=== PATIENT | female | born 1995 | race African-American/Black ===

== ENCOUNTER 2020-03-23 20:51 | Observation (INO) ==
--- OUTSIDE RECORDS SUMMARY | 2020-03-23 20:53 | External Medical Summary | Continuity of Care Document ---
:1995 Author Name Yusuf Matos, Provider Address Unavailable Unavailable , Care Team Providers Name Role Phone Janett [email or web address] GAVIN MOREIRA Unavailable Unavailable Problems Obesity (278.00) (E66.9) Allergies and Adverse Reactions Allergy history not documented Medications Medications not documented Procedures Procedures not documented Immunizations Immunizations not documented Plan of Treatment Planned Observations Planned Goals not documented Results No Known Results Results not documented Encounters Appointment; Janett Ashley R.D. 06-Jan-2011 8:30 Encounter Diagnosis: Problem not documented
--- OUTSIDE RECORDS SUMMARY | 2020-03-23 20:53 | External Medical Summary | Continuity of Care Document ---
:1995 Author Name Yusuf Matos, Provider Address Unavailable Unavailable , Care Team Providers Name Role Phone Janett Ashley [email or web address] GAVIN MOREIRA Unavailable Unavailable Problems Obesity (278.00) (E66.9) Allergies and Adverse Reactions Allergy history not documented Medications Medications not documented Procedures Procedures not documented Immunizations Immunizations not documented Plan of Treatment Planned Observations Planned Goals not documented Results No Known Results Results not documented Encounters Appointment; Janett Ashley R.D. 06-Jan-2011 8:30 Encounter Diagnosis: Problem not documented
--- NOTE | 2020-03-23 21:10 | Emergency Department Note ---
Impression & Plan Left leg paresthesias, Right leg paresthesias, Ambulatory dysfunction ED Provider Note NAME: UMM MANZO AGE: 24 SEX: F : 1995 ARRIVES VIA: Walk-In INFORMANT: Patient, ED PROVIDER(S): Jamie Sun MD Chief Complaint: Leg numbness HPI: Patient does report bilateral leg numbness that has been ongoing since to Wednesday. The patient states initially did seem to be in her bilateral feet but then subsequently got worse and progressed to her knees. Patient denies any headache back pain bowel or bladder incontinence or retention. The patient denies any recent trauma or falls. The patient does not take any blood thinner medications. Patient states that she has felt as though the legs feel swollen but they do not appear to be so. The patient has had some slight changes in difficulty with walking due to the change in feeling in her bilateral lower extremities. The patient was seen in the outpatient setting at [facility] and told that she may have some sort of polyneuropathy. The patient denies any recent changes in diet. The patient is likely from the area but does live in [place]. Patient denies fevers or chills, chest pains shortness of breath nausea or vomiting. Patient states she has not had the symptoms before the gotten progressively worse. Patient denies any recent vaccinations or infectious symptoms ROS: See HPI for pertinent positives and negatives. A total of 10 systems were reviewed and otherwise negative. Past medical history: See below Surgical history: See below Social history: See below Physical Exam: GENERAL: Wearing a mask. NAD, non-toxic. EYE EXAM: Normal conjunctiva. PERRL, no anisocoria and EOM's grossly intact w/o pain. NECK: Supple, no nuchal rigidity, no adenopathy, non-tender. No signs of meningismus. LUNGS: Clear to auscultation. Normal chest wall mechanics. HEART: NSR, no MRG. ABDOMEN: Abdomen soft, non-tender, normo-active bowel sounds, no masses, no rebound or guarding. BACK: No CVA TTP. SKIN: No rashes and no bruising. UPPER EXTREMITIES: Upper extremities are grossly normal. LOWER EXTREMITIES: Grossly normal, no edema. NEURO EXAM: A&O x3, cranial nerves II-XII grossly intact, normal speech, moves all 4 extremities on command. Patellar reflexes normal, able to differentiate left versus right lower extremity in the medial and lateral thigh calf and feet but states she feels the pressure but it does feel decreased and still has feelings of [id number], negative Romberg, slight change in posture with ambulation. Differential diagnoses: Infection, dehydration, metabolic abnormality, hypo/hyperglycemia, electrolyte disturbance, anemia, hypoxia, cardiac sources, intracerebral event, toxicologic, neurologic, as well as other pathologies. Course: Patient was seen and evaluated the bedside. Full history physical exam was performed. EKG: Sinus rhythm with PACs, rate of 67, normal intervals, normal axis, benign early repolarization noted. Imaging Studies: Radiology results as stated below per my review in the radiologist's interpretation: CT SCAN OF THE LUMBAR SPINE WITHOUT IV CONTRAST CLINICAL HISTORY: Lower extremity paresthesias COMPARISON STUDY: No priors. TECHNIQUE: CT scan of the lumbar spine is performed from the lower thoracic spine to the sacrum. Images are reviewed in the axial, sagittal, and coronal planes. IV contrast was not administered for this examination. A dose lowering technique was utilized adhering to the principles of ALARA. CT DOSE: 707.16 mGy.cm FINDINGS: The skeletal structures are well mineralized. There is no evidence of fracture or malalignment involving the lumbar spine. Vertebral body height and alignment are maintained. The transverse and spinous processes are intact. There is no spondylolysis. No lytic or blastic lesion is seen. The disc spaces are preserved. There is no CT evidence of disc herniation or central canal stenosis. The visualized sacrum and bony pelvis appear intact. The sacroiliac joints are normal as imaged. The paraspinous soft tissues are normal in appearance. IMPRESSION: No bony abnormality is seen involving the lumbar spine. ACT 112: Negative or not required by law. Electronically signed by: Hang Yates M.D. 03/23/2020 10:41 PM Dictated: 03/23/202237Transcribed: 03/23/202237 Cardiac monitoring: An order was placed for continuous cardiac monitoring. The monitor shows a rate of 81 with sinus rhythm. MDM: Patient did have blood work completed along with a CT of the lumbar spine. Blood work is unremarkable CT does not show any bony abnormality. CT of the head was not ordered initially the patient denied any headache the patient was having bilateral lower extremity changes. I did consider the possibility of GBS but the patient denies any recent infectious symptoms vaccination although it is slightly ascending in nature from the patient's feet now to the patient's needs. Patient has no respiratory symptoms. The patient's EKG is unremarkable. I did ambulate the patient after CAT scan and she states that she was not walking as she normally did several days ago. Given this I did order an MRI of the lumbar spine with and without contrast. Patient was signed out to Dr. Barbosa pending the results of an MRI reassessment disposition. I did discuss with Dr. Barbosa given the strange gait of the patient would recommend admission regardless of the MRI unless it required transfer. The patient denied any bowel or bladder incontinence and no retention. The patient had no saddle anesthesia. Past Med/Surg History Medical History No pertinent past medical history Surgical History No pertinent past surgical history Social History Smoking Status: Never smoker Hx Alcohol Use: No Hx Substance Use: Yes Last Used Substance: Hours (ago) Last Used Substance Other:: 2/3x day Preferred Language: [place] Islander Communication Ability: Effective Resin Remover Required: No Beliefs That Will Affect Care: None Current Living Situation: Alone Feels Safe at Home: Yes Safety Concerns: Feels Safe At This Time Assistive Devices: None Allergies Allergies Allergy/AdvReac Type Severity Reaction Status Date / Time amoxicillin [From Augmentin] Allergy Unknown Rash Verified 03/24/20 05:53 clavulanic acid Allergy Unknown Rash Verified 03/24/20 05:53 [From Augmentin] Home Meds Home Medications Medication Instructions Recorded Confirmed alprazolam 0.5 mg PO UD PRN 03/23/20 03/23/20 mirtazapine 7.5 mg PO DAILY 03/23/20 03/23/20 venlafaxine 37.5 mg PO DAILY 03/23/20 03/23/20 Results & Data (ED) Vital Signs Vital Signs - 24 hr 03/23/20 20:54 03/23/20 21:58 03/23/20 22:04 Temperature 36.7 C Temperature Source Oral Pulse Rate 82 73 61 Respiratory Rate 19 20 20 Respiratory Effort / Characteristics Non-Labored Respiratory Depth Normal Blood Pressure 139/74 121/78 Blood Pressure Mean 95 92 Pulse Oximetry 98 100 100 Oxygen Delivery Method Room Air Room Air Room Air Sepsis Recent Fever Within 48 Hours No Sepsis New/Unexplained Change in Mental Status No Sepsis Action Taken by Nursing No Action Required 03/23/20 23:01 03/23/20 23:30 03/24/20 00:00 Temperature Temperature Source Pulse Rate 75 68 71 Respiratory Rate 17 19 19 Respiratory Effort / Characteristics Respiratory Depth Blood Pressure 117/70 122/77 125/82 Blood Pressure Mean 85 92 96 Pulse Oximetry 98 99 99 Oxygen Delivery Method Sepsis Recent Fever Within 48 Hours Sepsis New/Unexplained Change in Mental Status Sepsis Action Taken by Nursing 03/24/20 01:31 03/24/20 02:00 03/24/20 02:43 Temperature Temperature Source Pulse Rate 85 74 73 Respiratory Rate 17 13 20 Respiratory Effort / Characteristics Respiratory Depth Blood Pressure 134/80 154/88 H 142/72 H Blood Pressure Mean 98 110 95 Pulse Oximetry 99 98 99 Oxygen Delivery Method Sepsis Recent Fever Within 48 Hours Sepsis New/Unexplained Change in Mental Status Sepsis Action Taken by Nursing 03/24/20 03:00 03/24/20 03:30 03/24/20 04:00 Temperature Temperature Source Pulse Rate 74 73 85 Respiratory Rate 17 18 18 Respiratory Effort / Characteristics Respiratory Depth Blood Pressure 140/87 126/74 124/81 Blood Pressure Mean 104 91 95 Pulse Oximetry 97 97 99 Oxygen Delivery Method Sepsis Recent Fever Within 48 Hours Sepsis New/Unexplained Change in Mental Status Sepsis Action Taken by Nursing 03/24/20 04:30 Temperature Temperature Source Pulse Rate 79 Respiratory Rate 19 Respiratory Effort / Characteristics Respiratory Depth Blood Pressure 114/78 Blood Pressure Mean 90 Pulse Oximetry 97 Oxygen Delivery Method Sepsis Recent Fever Within 48 Hours Sepsis New/Unexplained Change in Mental Status Sepsis Action Taken by Usp Medications Current Medication List: was personally reviewed by me Laboratory Data Attestation: I reviewed the patient's lab results. Result diagrams: 03/24/20 06:02 03/24/20 06:02 Lab Results 03/23/20 03/23/20 03/24/20 Range/Units 21:41 21:41 02:05 WBC 8.14 (4.8-10.8) K/uL RBC 4.00 L (4.2-5.4) M/uL Hgb 12.6 (12.0-16.0) g/dL Hct 37.6 (37-47) % MCV 94.0 (80-100) fL MCH 31.5 (25-34) pg MCHC 33.5 (32-36) g/dL RDW Std Deviation 43.7 (36.4-46.3) fL RDW Coeff of Keily 12.6 (11.5-14.5) % Plt Count 168 (130-400) K/uL MPV 10.3 (7.4-10.4) fL Immature Gran % (Auto) 0.1 % Neut % (Auto) 59.1 % Lymph % (Auto) 33.4 % Norton % (Auto) 6.6 % Eos % (Auto) 0.7 % Baso % (Auto) 0.1 % Neut # (Auto) 4.80 (1.4-6.5) K/uL Lymph # (Auto) 2.72 (1.2-3.4) K/uL Norton # (Auto) 0.54 (0.11-0.59) K/uL Eos # (Auto) 0.06 (0-0.5) K/uL Baso # (Auto) 0.01 (0-0.2) K/uL Immature Gran # (Auto) 0.01 (0.00-0.02) K/uL Sodium 140 (136-145) mmol/L Potassium 3.9 (3.5-5.1) mmol/L Chloride 106 (98-107) mmol/L Carbon Dioxide 29 (21-32) mmol/L Anion Gap 5.0 (3-11) BUN 8 (7-18) mg/dl Creatinine 0.85 (0.6-1.2) mg/dl Est Cr Clr Drug Dosing 118.2 ml/min Est GFR ( Amer) 109.6 Est GFR (Non-Af Amer) 94.6 BUN/Creatinine Ratio 9.3 L (10-20) Glucose 100 H (70-99) mg/dl Calcium 8.7 (8.5-10.1) mg/dl Phosphorus 2.9 (2.5-4.9) mg/dl Magnesium 2.1 (1.8-2.4) mg/dl Total Bilirubin 0.4 (0.2-1) mg/dl AST 8 L (15-37) U/L ALT 14 (12-78) U/L Alkaline Phosphatase 53 (45-117) U/L C-Reactive Protein < 0.29 (0-0.29) mg/dl Total Protein 7.1 (6.4-8.2) gm/dl Albumin 3.7 (3.4-5.0) gm/dl Globulin 3.4 (2.5-4.0) gm/dl Albumin/Globulin Ratio 1.1 (0.9-2) Vitamin B12 (193-986) pg/ml TSH 2.480 (0.300-4.500) uIu/ml HCG, Qual (Negative) Urine Color Urine Appearance (Clear) Urine pH (4.5-7.5) Ur Specific [place] (1.000-1.030) Urine Protein (Negative) Urine Glucose (UA) (Negative) Urine Ketones (Negative) Urine Blood (Negative) Urine Nitrite (Negative) Urine Bilirubin (Negative) Urine Urobilinogen (Negative) Ur Leukocyte Esterase (Negative) CSF Appearance CSF Color Xanthrochromic CSF WBC (0-5) /uL CSF RBC (0-) /uL CSF Cell Count Tube # CSF Chemistry Tube # CSF Glucose (40-70) mg/dl CSF Total Protein (15-45) mg/dl CSF C.neoform/gat PCR (NotDetected) CSF CMV DNA (PCR) (NotDetected) CSF Enterovirus (PCR) (NotDetected) CSF E. coli K1 (PCR) (NotDetected) CSF H. influenzae (PCR) (NotDetected) CSF HSV I (PCR) (NotDetected) CSF HSV II (PCR) (NotDetected) CSF HHV 6 (PCR) (NotDetected) CSF L.monocytogenes PCR (NotDetected) CSF N. meningitidis PCR (NotDetected) CSF Parechovirus (PCR) (NotDetected) CSF S. agalactiae (PCR) (NotDetected) CSF S. pneumoniae (PCR) (NotDetected) CSF VZV DNA (PCR) (NotDetected) COVID-19 [facility] SARS-CoV-2, RNA, NAAT (NEGATIVE) 03/24/20 03/24/20 03/24/20 Range/Units 02:05 02:37 02:37 WBC (4.8-10.8) K/uL RBC (4.2-5.4) M/uL Hgb (12.0-16.0) g/dL Hct (37-47) % MCV (80-100) fL MCH (25-34) pg MCHC (32-36) g/dL RDW Std Deviation (36.4-46.3) fL RDW Coeff of Keily (11.5-14.5) % Plt Count (130-400) K/uL MPV (7.4-10.4) fL Immature Gran % (Auto) % Neut % (Auto) % Lymph % (Auto) % Norton % (Auto) % Eos % (Auto) % Baso % (Auto) % Neut # (Auto) (1.4-6.5) K/uL Lymph # (Auto) (1.2-3.4) K/uL Norton # (Auto) (0.11-0.59) K/uL Eos # (Auto) (0-0.5) K/uL Baso # (Auto) (0-0.2) K/uL Immature Gran # (Auto) (0.00-0.02) K/uL Sodium (136-145) mmol/L Potassium (3.5-5.1) mmol/L Chloride (98-107) mmol/L Carbon Dioxide (21-32) mmol/L Anion Gap (3-11) BUN (7-18) mg/dl Creatinine (0.6-1.2) mg/dl Est Cr Clr Drug Dosing ml/min Est GFR ( Amer) Est GFR (Non-Af Amer) BUN/Creatinine Ratio (10-20) Glucose (70-99) mg/dl Calcium (8.5-10.1) mg/dl Phosphorus (2.5-4.9) mg/dl Magnesium (1.8-2.4) mg/dl Total Bilirubin (0.2-1) mg/dl AST (15-37) U/L ALT (12-78) U/L Alkaline Phosphatase (45-117) U/L C-Reactive Protein (0-0.29) mg/dl Total Protein (6.4-8.2) gm/dl Albumin (3.4-5.0) gm/dl Globulin (2.5-4.0) gm/dl Albumin/Globulin Ratio (0.9-2) Vitamin B12 757 (193-986) pg/ml TSH (0.300-4.500) uIu/ml HCG, Qual Negative (Negative) Urine Color Urine Appearance (Clear) Urine pH (4.5-7.5) Ur Specific [place] (1.000-1.030) Urine Protein (Negative) Urine Glucose (UA) (Negative) Urine Ketones (Negative) Urine Blood (Negative) Urine Nitrite (Negative) Urine Bilirubin (Negative) Urine Urobilinogen (Negative) Ur Leukocyte Esterase (Negative) CSF Appearance CSF Color Xanthrochromic CSF WBC (0-5) /uL CSF RBC (0-) /uL CSF Cell Count Tube # CSF Chemistry Tube # CSF Glucose (40-70) mg/dl CSF Total Protein (15-45) mg/dl CSF C.neoform/gat PCR (NotDetected) CSF CMV DNA (PCR) (NotDetected) CSF Enterovirus (PCR) (NotDetected) CSF E. coli K1 (PCR) (NotDetected) CSF H. influenzae (PCR) (NotDetected) CSF HSV I (PCR) (NotDetected) CSF HSV II (PCR) (NotDetected) CSF HHV 6 (PCR) (NotDetected) CSF L.monocytogenes PCR (NotDetected) CSF N. meningitidis PCR (NotDetected) CSF Parechovirus (PCR) (NotDetected) CSF S. agalactiae (PCR) (NotDetected) CSF S. pneumoniae (PCR) (NotDetected) CSF VZV DNA (PCR) (NotDetected) COVID-19 Eval Order SARS-CoV-2, RNA, NAAT NEGATIVE (NEGATIVE) 03/24/20 03/24/20 03/24/20 Range/Units 02:39 03:26 03:26 WBC (4.8-10.8) K/uL RBC (4.2-5.4) M/uL Hgb (12.0-16.0) g/dL Hct (37-47) % MCV (80-100) fL MCH (25-34) pg MCHC (32-36) g/dL RDW Std Deviation (36.4-46.3) fL RDW Coeff of Keily (11.5-14.5) % Plt Count (130-400) K/uL MPV (7.4-10.4) fL Immature Gran % (Auto) % Neut % (Auto) % Lymph % (Auto) % Norton % (Auto) % Eos % (Auto) % Baso % (Auto) % Neut # (Auto) (1.4-6.5) K/uL Lymph # (Auto) (1.2-3.4) K/uL Norton # (Auto) (0.11-0.59) K/uL Eos # (Auto) (0-0.5) K/uL Baso # (Auto) (0-0.2) K/uL Immature Gran # (Auto) (0.00-0.02) K/uL Sodium (136-145) mmol/L Potassium (3.5-5.1) mmol/L Chloride (98-107) mmol/L Carbon Dioxide (21-32) mmol/L Anion Gap (3-11) BUN (7-18) mg/dl Creatinine (0.6-1.2) mg/dl Est Cr Clr Drug Dosing ml/min Est GFR ( Amer) Est GFR (Non-Af Amer) BUN/Creatinine Ratio (10-20) Glucose (70-99) mg/dl Calcium (8.5-10.1) mg/dl Phosphorus (2.5-4.9) mg/dl Magnesium (1.8-2.4) mg/dl Total Bilirubin (0.2-1) mg/dl AST (15-37) U/L ALT (12-78) U/L Alkaline Phosphatase (45-117) U/L C-Reactive Protein (0-0.29) mg/dl Total Protein (6.4-8.2) gm/dl Albumin (3.4-5.0) gm/dl Globulin (2.5-4.0) gm/dl Albumin/Globulin Ratio (0.9-2) Vitamin B12 (193-986) pg/ml TSH (0.300-4.500) uIu/ml HCG, Qual (Negative) Urine Color Yellow Urine Appearance Clear (Clear) Urine pH 7.5 (4.5-7.5) Ur Specific [place] 1.018 (1.000-1.030) Urine Protein Negative (Negative) Urine Glucose (UA) Negative (Negative) Urine Ketones 1+ H (Negative) Urine Blood Negative (Negative) Urine Nitrite Negative (Negative) Urine Bilirubin Negative (Negative) Urine Urobilinogen Negative (Negative) Ur Leukocyte Esterase Negative (Negative) CSF Appearance Clear CSF Color Colorless Xanthrochromic No xanthochromia CSF WBC 3 (0-5) /uL CSF RBC 2 (0-) /uL CSF Cell Count Tube # 3 CSF Chemistry Tube # 1 CSF Glucose 64 (40-70) mg/dl CSF Total Protein 37.9 (15-45) mg/dl CSF C.neoform/gat PCR Not Detected (NotDetected) CSF CMV DNA (PCR) Not Detected (NotDetected) CSF Enterovirus (PCR) Not Detected (NotDetected) CSF E. coli K1 (PCR) Not Detected (NotDetected) CSF H. influenzae (PCR) Not Detected (NotDetected) CSF HSV I (PCR) Not Detected (NotDetected) CSF HSV II (PCR) Not Detected (NotDetected) CSF HHV 6 (PCR) Not Detected (NotDetected) CSF L.monocytogenes PCR Not Detected (NotDetected) CSF N. meningitidis PCR Not Detected (NotDetected) CSF Parechovirus (PCR) Not Detected (NotDetected) CSF S. agalactiae (PCR) Not Detected (NotDetected) CSF S. pneumoniae (PCR) Not Detected (NotDetected) CSF VZV DNA (PCR) Not Detected (NotDetected) COVID-19 Eval Order SARS-CoV-2, RNA, NAAT (NEGATIVE) Administered Medications Alprazolam (Alprazolam 0.5 Mg Tablet) 0.5 mg PO DAILY PRN PRN Reason: Anxiety Stop: 04/23/20 05:50 Last Admin: 03/24/20 15:37 Dose: 0.5 mg Documented by: [id number] Venlafaxine HCl (Venlafaxine Hcl Xr 37.5 Mg Capxr) 37.5 mg PO DAILY ERICK Stop: 04/23/20 08:59 Last Admin: 03/24/20 08:23 Dose: 37.5 mg Documented by: [id number] Discontinued Medications Gadobutrol (Gadobutrol 30ml Vial) 9.7 ml IV ONCE ONE Stop: 03/24/20 01:16 Last Admin: 03/24/20 01:16 Dose: 9.7 ml Documented by: [id number] Gadobutrol (Gadobutrol 65ml Vial) 9.7 ml IV ONCE ONE Stop: 03/24/20 15:01 Last Admin: 03/24/20 15:01 Dose: 9.7 ml Documented by: [id number] Sodium Chloride (Nss 1000ml) 1,000 mls @ 999 mls/hr IV .Q1H1M ERICK Stop: 03/23/20 22:45 Last Infusion: 03/23/20 22:55 Dose: 0 mls/hr Documented by: [id number] Admin: 03/23/20 21:54 Dose: 999 mls/hr Documented by: [id number] Lorazepam (Ativan) 1 mg in 2 mls @ 2 mls/min IV NOW STA Stop: 03/24/20 02:59 Last Admin: 03/24/20 03:03 Dose: 2 mls/min Documented by: [id number] Sodium Chloride (Nss 1000ml) 1,000 mls @ 999 mls/hr IV .Q1H1M ONE Stop: 03/24/20 04:25 Last Infusion: 03/24/20 04:27 Dose: 0 mls/hr Documented by: [id number] Admin: 03/24/20 03:26 Dose: 999 mls/hr Documented by: [id number] Methylprednisolone (Methylprednisolone 40 Mg/Ml Vial) 40 mg IV NOW STA Stop: 03/23/20 21:39 Last Admin: 03/23/20 21:55 Dose: 40 mg Documented by: [id number] Discharge Plan Visit Data Chief Complaint: Leg Injury/Pain Stated Complaint: LEG NUMBNESS ED Provider: Gregorio Barbosa Discharge Problem: Left leg paresthesias, Right leg paresthesias, Ambulatory dysfunction Patient Disposition: Admitted As Inpatient Discharge Instructions Interventions: ED Discharge Assessment Last Done: 03/24/20 05:22
[2020-03-23] MEDS ORDERED: SODIUM CHLORIDE 0.9% 1000ML 1,000 ML IV SCH (21:45)
[2020-03-23 21:53] LABS: Basophils # (auto) 0.01 K/uL (0-0.2); Basophils % (auto) 0.1 %; Eosinophils # (auto) 0.06 K/uL (0-0.5); Eosinophils % (auto) 0.7 %; Hematocrit (blood only) 37.6 % (37-47); Hemoglobin 12.6 g/dL (12.0-16.0); Immature Granulocytes # (auto) 0.01 K/uL (0.00-0.02); Immature Granulocytes % (auto) 0.1 %; Lymphocytes # (auto) 2.72 K/uL (1.2-3.4); Lymphocytes % (auto) 33.4 %; Mean Corpuscular Hemoglobin 31.5 pg (25-34); Mean Corpuscular Hgb Conc 33.5 g/dL (32-36); Mean Platelet Volume 10.3 fL (7.4-10.4); Monocytes # (auto) 0.54 K/uL (0.11-0.59); Monocytes % (auto) 6.6 %; Neutrophils % (auto) 59.1 %; Platelet Count 168 K/uL (130-400); RDW Coefficient of Variation 12.6 % (11.5-14.5); RDW Standard Deviation 43.7 fL (36.4-46.3); White Blood Count 8.14 K/uL (4.8-10.8)
[2020-03-23 22:11] LABS: Alanine Aminotransferase 14 U/L (12-78); Albumin Level 3.7 gm/dl (3.4-5.0); Aspartate Aminotransferase 8 U/L (15-37); BUN Creatinine Ratio 9.3 (10-20); Blood Urea Nitrogen 8 mg/dl (7-18); Calcium 8.7 mg/dl (8.5-10.1); Carbon Dioxide 29 mmol/L (21-32); Chloride 106 mmol/L (98-107); Creatinine Clr Calc Pharmacy 118.2 ml/min; Est GFR (African American) 109.6; Est GFR (Non-African American) 94.6; Glucose 100 mg/dl (70-99); Magnesium 2.1 mg/dl (1.8-2.4); Potassium 3.9 mmol/L (3.5-5.1); Sodium 140 mmol/L (136-145)
[2020-03-23 22:22] LABS: Albumin Globulin Ratio 1.1 (0.9-2); Alkaline Phosphatase 53 U/L (45-117); Bilirubin,Total 0.4 mg/dl (0.2-1); Globulin 3.4 gm/dl (2.5-4.0); Phosphorus 2.9 mg/dl (2.5-4.9); Total Protein 7.1 gm/dl (6.4-8.2)
--- NOTE | 2020-03-23 22:43 | CT Scan Report ---
CT SCAN OF THE LUMBAR SPINE WITHOUT IV CONTRAST CLINICAL HISTORY: Lower extremity paresthesias COMPARISON STUDY: No priors. TECHNIQUE: CT scan of the lumbar spine is performed from the lower thoracic spine to the sacrum. Sita ges are reviewed in the axial, sagittal, and coronal planes. IV contrast was not administered for thi s examination. A dose lowering technique was utilized adhering to the principles of ALARA. CT DOSE: 707.16 mGy.cm FINDINGS: The skeletal structures are well mineralized. There is no evidence of fracture or malalignm ent involving the lumbar spine. Vertebral body height and alignment are maintained. The transverse an d spinous processes are intact. There is no spondylolysis. No lytic or blastic lesion is seen. The di sc spaces are preserved. There is no CT evidence of disc herniation or central canal stenosis. The vi sualized sacrum and bony pelvis appear intact. The sacroiliac joints are normal as imaged. The parasp inous soft tissues are normal in appearance. IMPRESSION: No bony abnormality is seen involving the lumbar spine. ACT 112: Negative or not required by law. Electronically signed by: Hang Yates M.D. 03/23/2020 10:41 PM
[2020-03-24] MEDS ORDERED: GADOBUTROL 30ML VIAL IV ONE (01:15)
--- NOTE | 2020-03-24 01:25 | Emergency Department Note ---
ED Visit Note ED Physician Sign Out Note: 24 yr old healthy female bilateral lower leg tingling/paresthesias for the last several days without any back pain, headache, infectious symptoms nor recent vaccinations. CT lumbar spine earlier unremarkable as was initial work-up. She was unable to ambulate for staff and MRI of spine was ordered. On sign out patient was evaluated and examined. She does note a brief bought of diarrheal illness 1 week ago which she had attributed to food she had eaten. She notes recent travel from [place] for her grandmother's birthday. She has decreased sensation to lower extremities from mid thigh down, decreased distal strength, and reports unable to bear weight due to weakness. MRI report r eviewed which reveals no acute findings. I discussed case with hospitalist Dr Verde and Dr Hopkins of Neuro. Plan get LP and given ambulatory issues hospitalize. LP unremarkable and thus less likely Guillain Belding though it is unclear while acute bilateral lower leg weakness and loss of sensation. With normal LP and normal crp will defer steroids to hospitalist team. Patient stable and comfortable with plan. [facility] Radiologist interpretation reviewed by me: "MRI L SPINE : Negative exam. Minimal disc bulging without substantial canal or foraminal stenosis. Radiologist: Gregorio Poole MD" Procedure: Lumbar Puncture Indication: bilateral leg weakness. Verbal consent was obtained after the risks and benefits were explained, inc luding but not limited to headache, bleeding/clotting, scarring, infection, pain, and bone/joint/nerve damage. At this time, the risks of the procedure are less than the risks of NOT performing the procedure. A time out was taken and the correct patient and site identified. The patient was placed in the upright position and the back was prepped with betadine and draped in the standard fashion. The L3 intervertebral space was identified, anesthetized locally with 1% lidocaine without epinephrine, and the spinal needle was inserted through the skin with the bevel parallel to the dural fibers. The needle was carefully advanced into the lumbar cistern and 4 tubes of clear CSF was obtained. The stylet was replaced and the needle was removed. A bandaid was placed and the patient was placed in the supine position. The patient tolerated the procedure well and there were no complications. Gregorio Barbosa MD
[2020-03-24 02:26] LABS: C Reactive Protein < 0.29 mg/dl (0-0.29)
[2020-03-24 02:47] LABS: Appearance Urine Clear (Clear); Bilirubin Urine Negative (Negative); Blood Urine Negative (Negative); Color Urine Yellow; Glucose Urine UA Negative (Negative); Ketones Urine 1+ (Negative); Leukocyte Esterase Urine Negative (Negative); Nitrite Urine Negative (Negative); Protein Urine Negative (Negative); Specific Gravity Urine 1.018 (1.000-1.030); Urobilinogen Urine Negative (Negative); pH Urine 7.5 (4.5-7.5)
[2020-03-24] MEDS ORDERED: LORazepam 1 MG/2 ML VIAL IV STA (02:58)
[2020-03-24 02:59] LABS: Pregnancy Test, Serum Negative (Negative)
[2020-03-24] MEDS ORDERED: SODIUM CHLORIDE 0.9% 1000ML 1,000 ML IV ONE (03:25)
[2020-03-24 04:03] LABS: CSF Glucose 64 mg/dl (40-70); Total Protein CSF 37.9 mg/dl (15-45)
[2020-03-24 04:15] LABS: CSF Chemistry Tube # 1
[2020-03-24 04:26] LABS: CSF Count Tube # 3
[2020-03-24 04:27] LABS: Appearance CSF Clear; CSF Xanthrochromic No xanthochromia; Color CSF Colorless
[2020-03-24 04:32] LABS: White Blood Cell CSF (B) 3 /uL (0-5)
[2020-03-24 04:33] LABS: Red Blood Cell CSF (A) 2 /uL (0-); Red Blood Cell CSF (B) 2 /uL (0-)
[2020-03-24 04:40] LABS: White Blood Cell CSF (A) 3 /uL (0-5)
--- NOTE | 2020-03-24 04:43 | History & Physical Report ---
Date of Service March 24, 2020 Assessment & Plan Admission and Anticipated Discharge Date Admission Date: 27 yo previously healthy female presents with 2 weeks of diarrhea and new onset of progressive ascending paresthesia, subjective muscle weakness in the bilateral lower extremity concerning for GBS although meningitis, encephalitis, and MS are also on the differential. - admitted as observation, continue supportive care and monitoring - LP obtained with pending MS panel, total protein, PCR, Culture and gram stain - meningitis swab obtained, f/u results - given Methylprednisone in ER - IgG ordered - Neurology consulted - MRI C,T,L spine along with MRI brain Psychiatric history - continue Alprazolam PRN, and Venlafaxine Code: full DVT: SCD's Diet: regular History of Present Illness Chief Complaint: ascending paralysis Primary Care Provider: NO PCP Latia Watt is a 24-year-old female with prior history of a concussion in 2011, otherwise healthy. 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 She noticed on night that her feet felt like they were falling a sleep. On Wednesday morning she woke up and felt that her feet were cold and when she got up she felt that she was weak. When she was driving here from [facility] and she could only drive for 1 hour and then had to switch drivers. She felt the numbness and tingling had progressed from her feet to her knee and now to her mid thigh. She feels that her equilibrium is off, not that the room is spinning but is have trouble with walking. She feels that her legs feel swollen but aren't. No bowel or bladder incontinence. She noted that after eating Chipotle 2 weeks ago she had developed diarrhea with liquid mucus stools. She did have sweats over a week ago on the . She admits to weight loss in the past of 9 lbs. after stopping smoking marijuana at the time. Her psychiatrist wanted her to start Mirtazapine but she was concerned with the potential weight gain. She is currently smoking marijuana 2-3 times a day. She does not use tobacco or alcohol. No IVDU. Allergies Allergy/AdvReac Type Severity Reaction Status Date / Time amoxicillin [From Augmentin] Allergy Unknown Rash Verified 03/24/20 05:53 clavulanic acid Allergy Unknown Rash Verified 03/24/20 05:53 [From Augmentin] Home Medications Medication Instructions Recorded Confirmed Type alprazolam 0.5 mg PO UD PRN 03/23/20 03/23/20 History mirtazapine 7.5 mg PO DAILY 03/23/20 03/23/20 History venlafaxine 37.5 mg PO DAILY 03/23/20 03/23/20 History Past Med/Surg History Medical History No pertinent past medical history Surgical History No pertinent past surgical history Social History Smoking Status: Never smoker Hx Alcohol Use: No Hx Substance Use: Yes Last Used Substance: Hours (ago) Last Used Substance Other:: 2/3x day Preferred Language: [place] Communication Ability: Effective Coal Deliverer Required: No Beliefs That Will Affect Care: None Current Living Situation: Alone Feels Safe at Home: Yes Safety Concerns: Feels Safe At This Time Assistive Devices: None Review of Systems Review of Systems: Constitutional: denies fevers, chills, nausea, vomiting, generalized weakness, admits sweats on over 1 week prior. Head: denies headaches, confusion, lightheadedness, changes in vision Neurologic: denies syncope, slurring speech, dysarthria, facial droop Eyes: wears corrective lenses, denies blurry vision, discharge ENT: denies hearing loss, vertigo, stuffiness, sneezing, sore throat; admits chronic neck pain Cardiac: denies chest pain, palpitations, leg edema Pulm: denies cough, shortness of breath, pain on inspiration, hemoptysis, sputum production GI: Physical Exam Constitutional: WD/WN, vitals as above no acute distress Eyes: PERRL, conjunctivae normal, anicteric sclerae ENMT: external ear and nose normal, oropharynx normal Neck: normal visual inspection Respiratory: normal respiratory effort, lungs clear to auscultation Cardiovascular: RRR, no murmur, no edema Gastrointestinal (Abdomen): normal bowel sounds, soft, nontender, no hepatosplenomegaly Musculoskeletal: no cyanosis or clubbing, extremities motor strength 5/5 Skin: no rashes, warm and dry Neurologic: CN's II-XI intact bilaterally sensation diminished to light touch in the lower extremity bilaterally symmetric to the mid thigh strength intact to dorsiflexion, plantarflexion, and flexion of the hip Psychiatric: A+Ox3, euthymic affect Lymphatic: no cervical lymphadenopathy Results & Data Results & Data ([facility]) Vital Signs (Past 12 Hours) Vital Signs Temp Pulse Resp BP Pulse Ox 03/24/20 04:00 85 18 124/81 99 03/24/20 03:30 73 18 126/74 97 03/24/20 03:00 74 17 140/87 97 03/24/20 02:43 73 20 142/72 H 99 03/24/20 02:00 74 13 154/88 H 98 03/24/20 01:31 85 17 134/80 99 03/24/20 00:00 71 19 125/82 99 03/23/20 23:30 68 19 122/77 99 03/23/20 23:01 75 17 117/70 98 03/23/20 22:04 61 20 121/78 100 03/23/20 21:58 73 20 100 03/23/20 20:54 36.7 C 82 19 139/74 98 CBC Results Results Complete Blood Count Results: RBC 4.08 M/uL (4.2-5.4) L 03/24/20 WBC 6.69 K/uL (4.8-10.8) 03/24/20 Hgb 13.1 g/dL (12.0-16.0) 03/24/20 Hct 38.2 % (37-47) 03/24/20 Plt Count 184 K/uL (130-400) 03/24/20 Chemistry (BMP) Results BMP Results: Sodium 139 mmol/L (136-145) 03/24/20 Potassium 4.5 mmol/L (3.5-5.1) 03/24/20 Chloride 109 mmol/L (98-107) H 03/24/20 BUN 6 mg/dl (7-18) L 03/24/20 Creatinine 0.71 mg/dl (0.6-1.2) 03/24/20 Glucose 129 mg/dl (70-99) H 03/24/20 Supervising Physician Co-Signing Physician Notes Patient seen and examined, chart reviewed, case discussed with Dr. Zapata and I agree with his assessment and plan as documented above. Briefly, patient is a 24yo female with no significant past medical/surgical history presenting with bilateral LE numbness, ascending. Started with feet on now progressed to mid-thigh. No fevers, chills. No trauma. She did have a brief diarrheal illness possibly secondary to Chipotle. No bowel or bladder involvement. No recent vaccinations. No history of Covid-19 infection. No visual disturbances, diplopia or pain with eye movement On exam she is afebrile, HD stable, resting comfortably in NAD Skin - no rash HEENT - NC/AT, PERRL, EOMI, neck supple, MMM Heart - +S1/S2, regular, no m/r/g Lungs - CTA Abd - +BS, soft, NT/ND Ext - No edema Neuro - diminished sensation to light touch in bilateral LE to upper thighs - equal. DTRs intact 2+, MS intact 5, cognition is normal LP obtained in ER - clear, colorless with normal WBC, RBC, Cell count, glucose and protein Assessment/Plan: 24yo AA female with no significant PMH/PSH presenting with ascending paresthesia, equal bilaterally, progressive following a diarrhea illness. Ddx to include Guillan Millbury syndrome, possible myelitis, MS -MRIs C/T/L and Brain pending -Neurology consultation appreciated -Remainder of plan as above Resident Activity Tracking Resident Involvement: Resident Care Provided Care Provided: Adult Hospital Medicine
[2020-03-24 05:03] LABS: Cryptococcus neoformans/ga PCR Not Detected (NotDetected); Cytomegalovirus PCR Not Detected (NotDetected); Enterovirus PCR Not Detected (NotDetected); Escherichia coli K1 PCR Not Detected (NotDetected); Haemophilius influenzae PCR Not Detected (NotDetected); Herpes Simplex Virus 1 PCR Not Detected (NotDetected); Herpes Simplex Virus 2 PCR Not Detected (NotDetected); Human Herpes Virus 6 PCR Not Detected (NotDetected); Human Parechovirus PCR Not Detected (NotDetected); Listeria monocytogenes PCR Not Detected (NotDetected); Neisseria meningitidis PCR Not Detected (NotDetected); Streptococcus agalactiae PCR Not Detected (NotDetected); Streptococcus pneumoniae PCR Not Detected (NotDetected); Varicella Zoster Virus PCR Not Detected (NotDetected)
[2020-03-24] MEDS ORDERED: POLYETHYLENE (MIRALAX) 17 GM PACK PO PRN (05:51)
[2020-03-24] MEDS ORDERED: ALUMINUM/MAGNESIUM SUSP 30 ML UDC PO PRN (05:51)
[2020-03-24] MEDS ORDERED: ACETAMINOPHEN 325 MG TAB PO PRN (05:51)
[2020-03-24 06:17] LABS: Hematocrit (blood only) 38.2 % (37-47); Hemoglobin 13.1 g/dL (12.0-16.0); Lymphocytes # (auto) 0.48 K/uL (1.2-3.4); Lymphocytes % (auto) 7.2 %; Mean Corpuscular Hemoglobin 32.1 pg (25-34); Mean Corpuscular Hgb Conc 34.3 g/dL (32-36); Mean Corpuscular Volume 93.6 fL (80-100); Mean Platelet Volume 10.7 fL (7.4-10.4); Monocytes # (auto) 0.09 K/uL (0.11-0.59); Monocytes % (auto) 1.3 %; Neutrophils # (auto) 6.12 K/uL (1.4-6.5); Neutrophils % (auto) 91.5 %; Platelet Count 184 K/uL (130-400); RDW Coefficient of Variation 12.6 % (11.5-14.5); RDW Standard Deviation 43.4 fL (36.4-46.3); Red Blood Count 4.08 M/uL (4.2-5.4); White Blood Count 6.69 K/uL (4.8-10.8)
[2020-03-24 07:05] LABS: Albumin Level 3.5 gm/dl (3.4-5.0); BUN Creatinine Ratio 8.7 (10-20); Bilirubin,Total 0.9 mg/dl (0.2-1); Calcium 8.3 mg/dl (8.5-10.1); Creatinine Clr Calc Pharmacy 142.1 ml/min; Est GFR (African American) 136.2; Est GFR (Non-African American) 117.6; Globulin 3.5 gm/dl (2.5-4.0); Potassium 4.5 mmol/L (3.5-5.1)
--- NOTE | 2020-03-24 07:58 | Magnetic Resonance Report ---
MR lumbar spine wo/w con CLINICAL HISTORY: Ambulatory dysfunction. Bilateral leg numbness. TECHNIQUE: Sagittal and axial T1, T2 and STIR images were obtained. Images were acquired before and a fter the administration of 9.7 cc of intravenous Gadavist. COMPARISON STUDY: CT scan dated 03/23/2020 OBSERVATIONS: The vertebral bodies and posterior elements appear intact. There is no abnormal bony signal present t o suggest a marrow replacement process. L1-2: No disc protrusions or extrusions. No evidence of spinal canal or neural foraminal compromise. L2-3: There is a very minimal disc bulge. There is no focal herniation. There is no spinal or foramin al stenosis L3-4: There is a very minimal disc bulge. There is no focal herniation. There is no spinal or foramin al stenosis L4-5: There is a very minimal disc bulge. There is no focal herniation. There is no spinal or foramin al stenosis L5-S1: There is a very minimal disc bulge. There is no focal herniation. There is no spinal or forami nal stenosis The conus medullaris and cauda equina appear normal. Postcontrast images reveal no pathologically enhancing lesions. IMPRESSION: 1. Essentially normal MRI of the lumbar spine. ACT 112: Negative or not required by law. Electronically signed by: Vasu Hall M.D. 03/24/2020 7:56 AM
[2020-03-24] MEDS: VENLAFAXINE HCL XR 37.5 MG CAPXR PO SCH (08:23)
--- NOTE | 2020-03-24 10:48 | Neurology Consultation ---
Date of Consultation March 24, 2020 Assessment & Plan (1) Bilateral leg numbness: Latia Watt is a 24 yo woman w/ PMH of anxiety/depression and substance use (marijuana) who p/t [facility] on 03/23/20 with subacute onset of BLE weakness and numbness/tingling. # BLE numbness/weakness: LP shows no sign of infection or suggestion of GBS. MRI C-spine pending to r/o transverse myelitis or possible MS cervical cord lesion. - await results of imaging (MRI C-spine). If unremarkable, would consider post- infectious small fiber neuropathy as reflexes are relatively intact and would complete neuropathy workup as below - neuropathy workup: A1c, SPEP with CORY/UPEP, SSA/SSB, MERRILL screen, RF, folate, thiamine, B6. Would also recommend an EMG in 4-6 weeks if symptoms are still ongoing at that time, as well as possible skin biopsy to r/o small fiber neuropathy if EMG normal (can be done in [place]) - if normal MRI and neuropathy noted, could consider trial of IVIG (2g/kg divided over 3-4 days) - if MRI C-spine abnormal, would treat with steroids (1g methylprednisolone IV daily x 3 days total) - will likely need outpatient PT vs rehab; defer to PT assessment - there is no medication treatment for numbness, would encourage early immobilization to prevent deconditioning Thank you for this interesting consult. Plan of care discussed with primary team. Please call or text with questions. 80 minutes was spent [id number] with patient, with more than 50% spent on counseling/coordination of care/charting/speaking with the ED. (2) Ambulatory dysfunction: History of Present Illness Attending Physician: Jennifer Haywood MD History of Present Illness Latia Watt is a 24 yo woman w/ PMH of anxiety/depression and substance use who p/t [facility] on 03/23/20 with subacute onset of BLE weakness and numbness/tingling. In the ED, she was afebrile, BP 139/74, heart rate 82, respiratory 19, satting 98% on room air. Initial labs show WBC 8.4, hemoglobin 12.6 with MCV 94, platelets of 168, BMP within normal with glucose of 100, calcium/magnesium/phosphorus within normal, LFTs within normal albumin within normal, TSH within normal. Further testing showed B12 757, UA no infection, CSF showed 3 WBCs 2 RBC, 64 glucose, 37.9 protein, negative CSF bio fire panel for infection. MS panel still pending. Covid negative. Imaging independently reviewed. MRI L-spine shows no T2 hyperintensity, spinal or neuroforaminal stenosis, minimal multilevel disc disease otherwise essentially normal. MRI C- spine pending. She was given IV steroids prior to admission and admitted for inability to ambulate. On examination today, she reports that she was in her normal state of health until 03/21/20 when she woke up and noticed mild numbness/tingling/cold sensation in her feet bilaterally. This progressed up her leg to her knees on Wednesday and then mid-thighs on Wednesday, prompting presentation to the ED. Denies any injury; did start effexor recently after stopping frequent marijuana for anxiety; has been having a diarrheal illness the last one week but also notes a longer history of poor appetite and having rapid emptying/bowel movements right after eating that she thought might be IBS. Denies any saddle anesthesia, bowel/bladder retention, symptoms in her hands/trunk, vision changes or headache. Allergies Allergy/AdvReac Type Severity Reaction Status Date / Time amoxicillin [From Augmentin] Allergy Unknown Rash Verified 03/24/20 05:53 clavulanic acid Allergy Unknown Rash Verified 03/24/20 05:53 [From Augmentin] Home Medications Medication Instructions Recorded Confirmed Type alprazolam 0.5 mg PO UD PRN 03/23/20 03/23/20 History mirtazapine 7.5 mg PO DAILY 03/23/20 03/23/20 History venlafaxine 37.5 mg PO DAILY 03/23/20 03/23/20 History Patient History Medical History No pertinent past medical history Surgical History No pertinent past surgical history Social History Smoking Status: Never smoker Hx Alcohol Use: No Hx Substance Use: Yes Last Used Substance: Hours (ago) Last Used Substance Other:: 2/3x day Preferred Language: Czech Communication Ability: Effective Corn Popper Required: No Beliefs That Will Affect Care: None Current Living Situation: Alone Feels Safe at Home: Yes Safety Concerns: Feels Safe At This Time Assistive Devices: None Review of Systems Review of Systems: 14 point review of systems completed and negative except as in HPI. Exam (Neuro) Physical Exam: General Exam: GEN: NAD, sitting in bed. HEENT: No conjunctival injection, no rhinorrhea. CV: RRR, no peripheral edema PULM: Nonlabored respirations on room air. Neuro Exam: MS: Awake and Alert. Oriented to person, place, and date. Speech fluent and appropriate without dysarthria or paraphasic errors. Language intact including naming, comprehension, repetition. Cognition and memory grossly intact. Attention intact. No neglect. CN: Visual fernandez full. No extinction to double simultaneous stimuli. No optic disc edema on fundoscopic exam. PERRLA OU. EOMI without nystagmus. Facial sensation intact to LT. Facial muscles full and symmetric. Hearing intact to conversation. Uvula midline with symmetric palatal elevation. Shoulder shrug normal. Tongue midline. MOTOR: Normal bulk and tone. No pronator drift. BUE strength 5/5 at deltoids, biceps, triceps, wrist flexors and extensors, and hand grasp bilaterally. BLE strength 5/5 at iliopsoas, hamstrings, quadriceps, tibialis anterior, and gastrocnemius bilaterally. REFLEXES: 2+ at biceps, triceps, brachioradialis, 1-2+ patella and trace Achilles bilaterally. Toes mute bilaterally. SENSORY: Intact to LT without extinction to double simultaneous stimuli. Vibration and temperature intact throughout, reports diminished to vibration in BLEs up to the knees. COORDINATION: No dysmetria or ataxia on [id number] bilaterally. Normal Jose Antonio bilaterally. GAIT: Slow gait with normal arm swing. Positive Romberg. Results & Data ([facility]) Vital Signs (Past 12 Hours) Vital Signs Temp Pulse Pulse Resp BP BP Pulse Ox 03/24/20 07:47 36.8 C 83 18 119/79 98 03/24/20 05:54 36.2 C L 77 16 117/78 97 03/24/20 05:00 77 21 116/75 96 03/24/20 04:30 79 19 114/78 97 03/24/20 04:00 85 18 124/81 99 03/24/20 03:30 73 18 126/74 97 02/14/21 03:00 74 17 140/87 97 03/24/20 02:43 73 20 142/72 H 99 03/24/20 02:00 74 13 154/88 H 98 03/24/20 01:31 85 17 134/80 99 03/24/20 00:00 71 19 125/82 99 03/23/20 23:30 68 19 122/77 99 03/23/20 23:01 75 17 117/70 98 PG Care Time/CCT Total # of Minutes Spent Total Time Spent with Patient: Total time spent is greater than 50% in coordination of care (as documented) at patient's floor/unit and/or counseling patient: Coding Level of Care Code 42176 Inpt Consult Level 5 Diagnoses Bilateral leg numbness R20.0 Ambulatory dysfunction R26.2
[2020-03-24 11:32] LABS: Amphetamines+Metham, Urine Neg (Neg); Barbiturates, Urine Neg (Neg); Benzodiazepine, Urine Neg (Neg); Cocaine, Urine Neg (Neg); MDMA (Ecstacy), Urine Neg (Neg); Methadone, Urine Neg (Neg); Opiate, Urine Neg (Neg); Phencyclidine, Urine Neg (Neg)
--- NOTE | 2020-03-24 11:37 | Hospitalist Progress Note ---
Date of Service March 24, 2020 Assessment & Plan (1) Bilateral leg numbness: 27-year-old female with past medical history anxiety/depression , MJ use, otherwise previously healthy presents new onset of progressive ascending paresthesia, subjective muscle weakness in the bilateral lower extremity. Bilateral lower extremity numbness/weakness -admitted as observation, continue supportive care and monitoring -patient given IV Methylprednisone 40mg in ER -Labs: CBC/CMP largely unremarkable. B12 WNL 757. TSH WNL 2.48. Mag WNL 2.1. Phos WNL 2.9 -LP showing largely unremarkable CSF: 3 WBCs 2 RBC, 64 glucose, 37.9 protein, negative CSF bio fire panel for infection. No sign of infection or suggestion of GBS -MS panel, IgG, Albumin pending -Urine Tox negative except for Marijuana use -Covid negative -CSF Gram Stain showing: Few WBCs Seen. No Organisms Seen -CSF Culture pending -MRI Lumbar Spine: normal -Appreciate Neurology consult and recs as outlined below -MRI Brain and C-Spine pending. If unremarkable, would consider post- infectious small fiber neuropathy as reflexes are relatively intact and would complete neuropathy workup at that point (A1c, SPEP with CORY/UPEP, SSA/SSB, MERRILL screen, RF, folate, thiamine, B6). -if normal MRI and neuropathy noted, could consider trial of IVIG (2g/kg divided over 3-4 days) -if MRI C-spine abnormal, would treat with steroids (1g methylprednisolone IV daily x 3 days total) -Neuro recommends an EMG in 4-6 weeks if symptoms are still ongoing at that time, as well as possible skin biopsy to r/o small fiber neuropathy if EMG normal (can be done in [place] where pt is from) -no medication treatment for numbness, would encourage early immobilization to prevent deconditioning -PT/OT evals pending Anxiety/depression - continue Alprazolam PRN, and Venlafaxine FEN/GI: Regular diet DVT prophylaxis: SCDs CODE STATUS: Full code Dispo: Med telemetry. PT/OT evals pending. Further workup pending. Admission and Anticipated Discharge Date Admission Date: March 24, 2020 Supervising Physician Co-Signing Physician Notes Resident Physician Supervision Note: I independently interviewed and examined the patient and verified the sarabia history and physical, reviewed labs and image studies, discussed the case with the resident Dr. Denise and agree with the findings and care plan. Subjective Patient found in bed this a.m. in no acute distress. No acute overnight events reported. Patient notes that she believes numbness in her extremities has improved somewhat. Worse over knees, patient also 'feels like ice blocks'. However, tingling is still present. Has not yet tried ambulating. Review of Systems Review of Systems: All systems reviewed & are unremarkable except as noted in HPI & below Physical Exam Constitutional: WD/WN, vitals as above Eyes: PERRL, conjunctivae normal, anicteric sclerae ENMT: external ear and nose normal, oropharynx normal Respiratory: normal respiratory effort, lungs clear to auscultation Cardiovascular: RRR, no murmur, no edema Gastrointestinal (Abdomen): normal bowel sounds, soft, nontender, no hepatosplenomegaly Neurologic: CN's II-XI intact bilaterally and deep tendon reflexes 2+ bilaterally; + abnormal touch/pain/proprioception (Decreased sensation to light touch lower extremity b/l up to mid thigh) and no focal motor deficits Normal motor strength lower extremity b/l 5/5 Psychiatric: A+Ox3, euthymic affect Results & Data Results & Data ([facility]) Vital Signs (Past 12 Hours) Vital Signs Temp Pulse Pulse Resp BP BP Pulse Ox 03/24/20 07:47 36.8 C 83 18 119/79 98 03/24/20 05:54 36.2 C L 77 16 117/78 97 03/24/20 05:00 77 21 116/75 96 03/24/20 04:30 79 19 114/78 97 03/24/20 04:00 85 18 124/81 99 03/24/20 03:30 73 18 126/74 97 03/24/20 03:00 74 17 140/87 97 03/24/20 02:43 73 20 142/72 H 99 03/24/20 02:00 74 13 154/88 H 98 03/24/20 01:31 85 17 134/80 99 03/24/20 00:00 71 19 125/82 99 03/23/20 23:30 68 19 122/77 99 Laboratory Results Laboratory Results - last 24 hr 03/23/20 03/23/20 03/24/20 21:41 21:41 02:05 WBC 8.14 RBC 4.00 L Hgb 12.6 Hct 37.6 MCV 94.0 MCH 31.5 MCHC 33.5 RDW Std Deviation 43.7 RDW Coeff of Keily 12.6 Plt Count 168 MPV 10.3 Immature Gran % (Auto) 0.1 Neut % (Auto) 59.1 Lymph % (Auto) 33.4 [place] % (Auto) 6.6 Eos % (Auto) 0.7 Baso % (Auto) 0.1 Neut # (Auto) 4.80 Lymph # (Auto) 2.72 [place] # (Auto) 0.54 Eos # (Auto) 0.06 Baso # (Auto) 0.01 Immature Gran # (Auto) 0.01 Sodium 140 Potassium 3.9 Chloride 106 Carbon Dioxide 29 Anion Gap 5.0 BUN 8 Creatinine 0.85 Est Cr Clr Drug Dosing 118.2 Est GFR ( Amer) 109.6 Est GFR (Non-Af Amer) 94.6 BUN/Creatinine Ratio 9.3 L Glucose 100 H Calcium 8.7 Phosphorus 2.9 Magnesium 2.1 Total Bilirubin 0.4 AST 8 L ALT 14 Alkaline Phosphatase 53 C-Reactive Protein < 0.29 Total Protein 7.1 Albumin 3.7 Globulin 3.4 Albumin/Globulin Ratio 1.1 Vitamin B12 TSH 2.480 HCG, Qual Urine Color Urine Appearance Urine pH Ur Specific [place] Urine Protein Urine Glucose (UA) Urine Ketones Urine Blood Urine Nitrite Urine Bilirubin Urine Urobilinogen Ur Leukocyte Esterase CSF Appearance CSF Color Xanthrochromic CSF WBC CSF RBC CSF Cell Count Tube # CSF Chemistry Tube # CSF Glucose CSF Total Protein CSF Albumin CSF IgG CSF IgG Index CSF IgG Synthesis Rate CSF Myelin Basic Protein CSF IgG Oligoclonal Bnd CSF C.neoform/gat PCR CSF CMV DNA (PCR) CSF Enterovirus (PCR) CSF E. coli K1 (PCR) CSF H. influenzae (PCR) CSF HSV I (PCR) CSF HSV II (PCR) CSF HHV 6 (PCR) CSF L.monocytogenes PCR CSF N. meningitidis PCR CSF Parechovirus (PCR) CSF S. agalactiae (PCR) CSF S. pneumoniae (PCR) CSF VZV DNA (PCR) Urine Opiates Screen Ur Methadone, Qual Urine Barbiturates Ur Phencyclidine (PCP) U Amphetamin/Meth Scrn MDMA (Ecstasy) Screen U Benzodiazepines Scrn Ur Cocaine Metabolite U Marijuana (THC) Screen U Marijuana THC Carboxy Drug Screen Comment IgG Albumin (CORY) COVID-19 Eval [facility] SARS-[facility]-2, RNA, NAAT 03/24/20 03/24/20 03/24/20 02:05 02:37 02:37 WBC RBC Hgb Hct MCV MCH MCHC RDW Std Deviation RDW Coeff of Keily Plt Count MPV Immature Gran % (Auto) Neut % (Auto) Lymph % (Auto) [place] % (Auto) Eos % (Auto) Baso % (Auto) Neut # (Auto) Lymph # (Auto) [place] # (Auto) Eos # (Auto) Baso # (Auto) Immature Gran # (Auto) Sodium Potassium Chloride Carbon Dioxide Anion Gap BUN Creatinine Est Cr Clr Drug Dosing Est GFR ( Amer) Est GFR (Non-Af Amer) BUN/Creatinine Ratio Glucose Calcium Phosphorus Magnesium Total Bilirubin AST ALT Alkaline Phosphatase C-Reactive Protein Total Protein Albumin Globulin Albumin/Globulin Ratio Vitamin B12 757 TSH HCG, Qual Negative Urine Color Urine Appearance Urine pH Ur Specific [place] Urine Protein Urine Glucose (UA) Urine Ketones Urine Blood Urine Nitrite Urine Bilirubin Urine Urobilinogen Ur Leukocyte Esterase CSF Appearance CSF Color Xanthrochromic CSF WBC CSF RBC CSF Cell Count Tube # CSF Chemistry Tube # CSF Glucose CSF Total Protein CSF Albumin CSF IgG CSF IgG Index CSF IgG Synthesis Rate CSF Myelin Basic Protein CSF IgG Oligoclonal Bnd CSF C.neoform/gat PCR CSF CMV DNA (PCR) CSF Enterovirus (PCR) CSF E. coli K1 (PCR) CSF H. influenzae (PCR) CSF HSV I (PCR) CSF HSV II (PCR) CSF HHV 6 (PCR) CSF L.monocytogenes PCR CSF N. meningitidis PCR CSF Parechovirus (PCR) CSF S. agalactiae (PCR) CSF S. pneumoniae (PCR) CSF VZV DNA (PCR) Urine Opiates Screen Ur Methadone, Qual Urine Barbiturates Ur Phencyclidine (PCP) U Amphetamin/Meth Scrn MDMA (Ecstasy) Screen U Benzodiazepines Scrn Ur Cocaine Metabolite U Marijuana (THC) Screen U Marijuana THC Carboxy Drug Screen Comment IgG Albumin (CORY) COVID-19 Eval Order SARS-CoV-2, RNA, NAAT NEGATIVE 03/24/20 03/24/20 03/24/20 02:39 03:26 03:26 WBC RBC Hgb Hct MCV MCH MCHC RDW Std Deviation RDW Coeff of Ke[place] Plt Count MPV Immature Gran % (Auto) Neut % (Auto) Lymph % (Auto) [place] % (Auto) Eos % (Auto) Baso % (Auto) Neut # (Auto) Lymph # (Auto) [place] # (Auto) Eos # (Auto) Baso # (Auto) Immature Gran # (Auto) Sodium Potassium Chloride Carbon Dioxide Anion Gap BUN Creatinine Est Cr Clr Drug Dosing Est GFR ( Amer) Est GFR (Non-Af Amer) BUN/Creatinine Ratio Glucose Calcium Phosphorus Magnesium Total Bilirubin AST ALT Alkaline Phosphatase C-Reactive Protein Total Protein Albumin Globulin Albumin/Globulin Ratio Vitamin B12 TSH HCG, Qual Urine Color Yellow Urine Appearance Clear Urine pH 7.5 Ur Specific [place] 1.018 Urine Protein Negative Urine Glucose (UA) Negative Urine Ketones 1+ H Urine Blood Negative Urine Nitrite Negative Urine Bilirubin Negative Urine Urobilinogen Negative Ur Leukocyte Esterase Negative CSF Appearance Clear CSF Color Colorless Xanthrochromic No xanthochromia CSF WBC 3 CSF RBC 2 CSF Cell Count Tube # 3 CSF Chemistry Tube # 1 CSF Glucose 64 CSF Total Protein 37.9 CSF Albumin Pending CSF IgG Pending CSF IgG Index Pending CSF IgG Synthesis Rate Pending CSF Myelin Basic Protein Pending CSF IgG Oligoclonal Bnd Pending CSF C.neoform/gat PCR CSF CMV DNA (PCR) CSF Enterovirus (PCR) CSF E. coli K1 (PCR) CSF H. influenzae (PCR) CSF HSV I (PCR) CSF HSV II (PCR) CSF HHV 6 (PCR) CSF L.monocytogenes PCR CSF N. meningitidis PCR CSF Parechovirus (PCR) CSF S. agalactiae (PCR) CSF S. pneumoniae (PCR) CSF VZV DNA (PCR) Urine Opiates Screen Ur Methadone, Qual Urine Barbiturates Ur Phencyclidine (PCP) U Amphetamin/Meth Scrn MDMA (Ecstasy) Screen U Benzodiazepines Scrn Ur Cocaine Metabolite U Marijuana (THC) Screen U Marijuana THC Carboxy Drug Screen Comment IgG Pending Albumin (CORY) Pending COVID-19 Eval Order SARS-CoV-2, RNA, NAAT 03/24/20 03/24/20 03/24/20 03:26 06:02 06:02 WBC 6.69 RBC 4.08 L Hgb 13.1 Hct 38.2 MCV 93.6 MCH 32.1 MCHC 34.3 RDW Std Deviation 43.4 RDW Coeff of Keily 12.6 Plt Count 184 MPV 10.7 H Immature Gran % (Auto) 0.0 Neut % (Auto) 91.5 Lymph % (Auto) 7.2 [place] % (Auto) 1.3 Eos % (Auto) 0.0 Baso % (Auto) 0.0 Neut # (Auto) 6.12 Lymph # (Auto) 0.48 L [place] # (Auto) 0.09 L Eos # (Auto) 0.00 Baso # (Auto) 0.00 Immature Gran # (Auto) 0.00 Sodium 139 Potassium 4.5 D Chloride 109 H Carbon Dioxide 27 Anion Gap 3.0 BUN 6 L Creatinine 0.71 Est Cr Clr Drug Dosing 142.1 Est GFR ( Amer) 136.2 Est GFR (Non-Af Amer) 117.6 BUN/Creatinine Ratio 8.7 L Glucose 129 H Calcium 8.3 L Phosphorus Magnesium Total Bilirubin 0.9 D AST 12 L ALT 14 Alkaline Phosphatase 51 C-Reactive Protein Total Protein 7.0 Albumin 3.5 Globulin 3.5 Albumin/Globulin Ratio 1.0 Vitamin B12 TSH HCG, Qual Urine Color Urine Appearance Urine pH Ur Specific [place] Urine Protein Urine Glucose (UA) Urine Ketones Urine Blood Urine Nitrite Urine Bilirubin Urine Urobilinogen Ur Leukocyte Esterase CSF Appearance CSF Color Xanthrochromic CSF WBC CSF RBC CSF Cell Count Tube # CSF Chemistry Tube # CSF Glucose CSF Total Protein CSF Albumin CSF IgG CSF IgG Index CSF IgG Synthesis Rate CSF Myelin Basic Protein CSF IgG Oligoclonal Bnd CSF C.neoform/gat PCR Not Detected CSF CMV DNA (PCR) Not Detected CSF Enterovirus (PCR) Not Detected CSF E. coli K1 (PCR) Not Detected CSF H. influenzae (PCR) Not Detected CSF HSV I (PCR) Not Detected CSF HSV II (PCR) Not Detected CSF HHV 6 (PCR) Not Detected CSF L.monocytogenes PCR Not Detected CSF N. meningitidis PCR Not Detected CSF Parechovirus (PCR) Not Detected CSF S. agalactiae (PCR) Not Detected CSF S. pneumoniae (PCR) Not Detected CSF VZV DNA (PCR) Not Detected Urine Opiates Screen Ur Methadone, Qual Urine Barbiturates Ur Phencyclidine (PCP) U Amphetamin/Meth Scrn MDMA (Ecstasy) Screen U Benzodiazepines Scrn Ur Cocaine Metabolite U Marijuana (THC) Screen U Marijuana THC Carboxy Drug Screen Comment IgG Albumin (CORY) COVID-19 Eval Order SARS-CoV-2, RNA, NAAT 03/24/20 03/24/20 11:00 11:00 WBC RBC Hgb Hct MCV MCH MCHC RDW Std Deviation RDW Coeff of Keily Plt Count MPV Immature Gran % (Auto) Neut % (Auto) Lymph % (Auto) [place] % (Auto) Eos % (Auto) Baso % (Auto) Neut # (Auto) Lymph # (Auto) [place] # (Auto) Eos # (Auto) Baso # (Auto) Immature Gran # (Auto) Sodium Potassium Chloride Carbon Dioxide Anion Gap BUN Creatinine Est Cr Clr Drug Dosing Est GFR ( Amer) Est GFR (Non-Af Amer) BUN/Creatinine Ratio Glucose Calcium Phosphorus Magnesium Total Bilirubin AST ALT Alkaline Phosphatase C-Reactive Protein Total Protein Albumin Globulin Albumin/Globulin Ratio Vitamin B12 TSH HCG, Qual Urine Color Urine Appearance Urine pH Ur Specific [place] Urine Protein Urine Glucose (UA) Urine Ketones Urine Blood Urine Nitrite Urine Bilirubin Urine Urobilinogen Ur Leukocyte Esterase CSF Appearance CSF Color Xanthrochromic CSF WBC CSF RBC CSF Cell Count Tube # CSF Chemistry Tube # CSF Glucose CSF Total Protein CSF Albumin CSF IgG CSF IgG Index CSF IgG Synthesis Rate CSF Myelin Basic Protein CSF IgG Oligoclonal Bnd CSF C.neoform/gat PCR CSF CMV DNA (PCR) CSF Enterovirus (PCR) CSF E. coli K1 (PCR) CSF H. influenzae (PCR) CSF HSV I (PCR) CSF HSV II (PCR) CSF HHV 6 (PCR) CSF L.monocytogenes PCR CSF N. meningitidis PCR CSF Parechovirus (PCR) CSF S. agalactiae (PCR) CSF S. pneumoniae (PCR) CSF VZV DNA (PCR) Urine Opiates Screen Neg Ur Methadone, Qual Neg Urine Barbiturates Neg Ur Phencyclidine (PCP) Neg U Amphetamin/Meth Scrn Neg MDMA (Ecstasy) Screen Neg U Benzodiazepines Scrn Neg Ur Cocaine Metabolite Neg U Marijuana (THC) Screen Pos H U Marijuana THC Carboxy Pending Drug Screen Comment Pending IgG Albumin (CORY) COVID-19 Eval Order SARS-CoV-2, RNA, NAAT Medications Administered Current Inpatient Medications Acetaminophen (Acetaminophen 325 Mg Tab) 650 mg PO Q4H PRN PRN Reason: pain/fever Stop: 04/23/20 05:50 Al Hydrox/Mg Hydrox/Simethicone (Aluminum/Magnesium Susp 30 Ml Udc) 30 ml PO Q6H PRN PRN Reason: Dyspepsia Stop: 04/23/20 05:50 Alprazolam (Alprazolam 0.5 Mg Tablet) 0.5 mg PO DAILY PRN PRN Reason: Anxiety Stop: 04/23/20 05:50 Polyethylene Glycol (Polyethylene (Miralax) 17 Gm Pack) 17 gm PO DAILY PRN PRN Reason: Constipation Stop: 04/23/20 05:50 Venlafaxine HCl (Venlafaxine Hcl Xr 37.5 Mg Capxr) 37.5 mg PO DAILY ERICK Stop: 04/23/20 08:59 Last Admin: 03/24/20 08:23 Dose: 37.5 mg Documented by: Resident Activity Tracking Resident Involvement: Resident Care Provided Care Provided: Adult Hospital Medicine
[2020-03-24] MEDS ORDERED: GADOBUTROL 65ML VIAL IV ONE (15:00)
--- NOTE | 2020-03-24 15:12 | Magnetic Resonance Report ---
MRI OF THE BRAIN WITHOUT AND WITH IV CONTRAST CLINICAL HISTORY: ascending paralysis COMPARISON STUDY: No previous studies for comparison. TECHNIQUE: MRI of the brain was performed from the vertex to the skull base utilizing various T1 and T2 weighted sequences. Following the IV administration of 9.7 mL of Gadavist contrast, additional enh anced images were obtained. FINDINGS: Sagittal T1, axial diffusion, proton density and T2 weighted axial, coronal FLAIR, and pre and post a xial T1-weighted images were acquired. These were supplemented with post gadolinium coronal T1 weight ed images. Diffusion-weighted images reveal a 1 cm focus of increased signal within the left parietal white terrence er, likely representing T2 shine through. There is no evidence of ventricular dilatation. Proton density T2-weighted and FLAIR images reveal multiple foci of increased T2 signal within the de ep white matter. These involve both temporal lobes, as well as the frontal and parietal periventricul ar white matter. There are no abnormal flow voids. Postcontrast images reveal a 9 mm enhancing lesion within the left parietal deep white matter. There are 2 enhancing lesions within the right temporal white matter the largest of which measures 5 mm. IMPRESSION: 1. No evidence of acute or subacute infarction 2. Multiple foci of increased T2 signal within the deep white matter with involvement of the frontal, parietal and temporal regions. 3. The left parietal lesion and 2 right temporal lesions demonstrate postcontrast enhancement 3. The findings likely represent active demyelination. Clinical and imaging follow-up is recommended. ACT 112: Negative or not required by law. Electronically signed by: Vasu Hall M.D. 03/24/2020 3:11 PM
--- NOTE | 2020-03-24 15:14 | Magnetic Resonance Report ---
MR cervical spine wo/w con CLINICAL HISTORY: Lower extremity paresthesias. TECHNIQUE: Sagittal and axial T1, T2 and STIR images were obtained. Images were acquired before and a fter the demonstration of 9.7 cc of intravenous Gadavist COMPARISON STUDY: No previous studies for comparison. There are no suspicious areas of marrow replacement. No intrinsic cervical cord lesions are visualize d. C2-3: There is no evidence of disc bulge or focal herniation. There is no spinal or foraminal stenosi s. C3-4: There is no evidence of disc bulge or focal herniation. There is no spinal or foraminal stenosi s. C4-5: There are no disc bulges or focal herniations. There is no spinal or foraminal stenosis. C5-6 :There are no disc bulges or focal herniations. There is no spinal or foraminal stenosis. C6-7: There is no evidence of disc bulge or focal herniation. There is no evidence of spinal or britany inal stenosis. C7-T1: There is no evidence of disc bulge or focal herniation. There is no evidence of spinal or fora stephanie stenosis. Postcontrast images reveal no pathologically enhancing lesions. IMPRESSION:Normal MRI of the cervical spine. ACT 112: Negative or not required by law. Electronically signed by: Vasu Hall M.D. 03/24/2020 3:13 PM
--- NOTE | 2020-03-24 15:19 | Magnetic Resonance Report ---
MR thoracic spine wo/w con CLINICAL HISTORY: ascending paralysis COMPARISON STUDY: No previous studies for comparison. FINDINGS: Images were acquired in the sagittal and axial planes, before and after the administration of 9.7 cc of intravenous gadolinium. There is mild motion artifact. There are no suspicious areas of marrow replacement. No disc herniations are visualized. There is no spinal stenosis. No paraspinal masses are visualized. No cord lesions are visualized. There is no pathologic enhancement. There is a 9 mm T2 bright focus at the T7 level within the right lower lobe medially. This is probabl y artifactual. If further evaluation is desired, CT scan of chest with be recommended. IMPRESSION: 1. No thoracic disc herniations identified 2. No thoracic cord abnormalities identified 3. 9 mm T2 bright pulmonary focus within the right lower lobe, probably artifactual. ACT 112: Negative or not required by law. Electronically signed by: Vasu Hall M.D. 03/24/2020 3:18 PM
[2020-03-24] MEDS: ALPRAZolam 0.5 MG TABLET PO PRN (15:37)
[2020-03-24] MEDS: methylPREDNISolone 1,000 MG in DEXTROSE 5% 250 ML IV SCH (19:54)
--- NOTE | 2020-03-24 22:38 | Billing Data ---
Date of Service March 24, 2020 Coding Level of Care Code 86593 OBS Care - Level 2
--- NOTE | 2020-03-25 05:31 | Electrocardiogram Report ---
Test Reason : Blood Pressure : / mmHG Vent. Rate : 067 BPM Atrial Rate : 067 BPM P-R Int : 140 ms QRS Dur : 084 ms QT Int : 390 ms P-R-T Axes : 063 080 061 degrees QTc Int : 412 ms Sinus rhythm with Premature atrial complexes Early repolarization Otherwise normal ECG No previous ECGs available Confirmed by Adan Brandon ([id number]) on 03/25/2020 5:30:30 AM Referred By: REFERRED SELF Confirmed By:Adan Brandon
[2020-03-25 06:02] LABS: Hematocrit (blood only) 39.2 % (37-47); Hemoglobin 13.4 g/dL (12.0-16.0); Immature Granulocytes # (auto) 0.02 K/uL (0.00-0.02); Immature Granulocytes % (auto) 0.3 %; Lymphocytes # (auto) 0.56 K/uL (1.2-3.4); Lymphocytes % (auto) 7.5 %; Mean Corpuscular Hemoglobin 31.7 pg (25-34); Mean Corpuscular Hgb Conc 34.2 g/dL (32-36); Mean Corpuscular Volume 92.7 fL (80-100); Mean Platelet Volume 10.4 fL (7.4-10.4); Monocytes # (auto) 0.04 K/uL (0.11-0.59); Monocytes % (auto) 0.5 %; Neutrophils # (auto) 6.86 K/uL (1.4-6.5); Neutrophils % (auto) 91.7 %; Platelet Count 177 K/uL (130-400); RDW Coefficient of Variation 12.5 % (11.5-14.5); RDW Standard Deviation 42.6 fL (36.4-46.3); Red Blood Count 4.23 M/uL (4.2-5.4); White Blood Count 7.48 K/uL (4.8-10.8)
[2020-03-25 06:28] LABS: Blood Urea Nitrogen 9 mg/dl (7-18); C Reactive Protein < 0.29 mg/dl (0-0.29); Calcium 9.1 mg/dl (8.5-10.1); Carbon Dioxide 27 mmol/L (21-32); Chloride 106 mmol/L (98-107); Creatinine Clr Calc Pharmacy 129.4 ml/min; Est GFR (African American) 121.6; Est GFR (Non-African American) 104.9; Glucose 144 mg/dl (70-99); Potassium 4.3 mmol/L (3.5-5.1); Sodium 138 mmol/L (136-145)
[2020-03-25] MEDS: VENLAFAXINE HCL XR 37.5 MG CAPXR PO SCH ×2 (08:13→08:16)
--- NOTE | 2020-03-25 08:34 | Medical Student Progress Note ---
Date of Service March 25, 2020 Assessment & Plan Admission and Anticipated Discharge Date Admission Date: March 25, 2020 24 yo F with pmh of anxiety/depression and MJ use, currently on day 3 of hospital admission for ascending paresthesia in bilateral lower extremities. 1) Bilateral lower extremity paresthesia Ddx consists of multiple sclerosis, acute disseminated encephalomyelitis and Guillian-Whiteville Syndrome. GBS felt to be less likely because of lack of reflex abnormality, lack of weakness on exam, and lack of cytoalbuminlogic disassociation on CSF analysis. Brain MRI showing several active areas of demyelination. MRI Thoracic, Lumbar, and Cervical showing no evidence of demyelinating lesion on the spinal cord, herniated discs, or transverse myelitis. MS Panel, IgG and Albumin pending. MS is suspected due to her age, gender, clinical event, and findings on MRI. Clinical event and demylinating areas are disseminated in space (Phan Criteria) favor this etiology; although patient denies a history of optic neuritis If MS Panel comes back negative, the next plausible explanation is ADEM - which is consistent with MRI findings and clinical presentation. - A lengthy discussion was held with patient and mother regarding the prognosis of MS vs. ADEM, and how a definitive answer will not likely be obtained in the near future - Symptomatic improvement on 1000mg Solu-Medrol. - will Treat with Solu-Medrol 1000 mg/day, total of 3 days. Follow with Medrol Dosepak taper at time of discharge. - She will need to be followed by a neurologist as an outpatient - Would encourage early immobilization to prevent deconditioning 2) Anxiety/depression - continue Alprazolam PRN, and Venlafaxine 3) Vit D deficiency - level at 12.9 - Supplementing with 50,000 mg per week with a 1,000 mg daily supplement. - recommend recheck level in 3 months FEN/GI: Regular diet DVT prophylaxis: SCDs CODE STATUS: Full code Dispo: Med telemetry. Expected discharge following steroid treatment tomorrow. Supervising Attestation I personally examined the patient and verified all sarabia points of history and exam, discussed case, and agree with decision making with Coty DO. Leg numbness a little bit better on her shins, still there may be slightly worse on her distal thighs, no other progression. Extensive discussions with patient and then repeated discussions with mom over the phone in patient's presence, discussing differential diagnoses, working diagnosis, plans, and next steps. She also does not have a PCP in the [place] area, so with her permission I reached out to one of our former residents who practices in the area and he is more than happy to accept her as a new patient. Vitals noted, in general she is awake and alert pleasant no distress. HEENT normocephalic atraumatic mucous membranes moist. Breathing unlabored no accessory muscle use good effort. Skin shows no rashes no pallor or icterus. Neuro shows diminished but present sensation bilaterallydiminished in the distal thigh, diminished but slightly more sensory presence in the brownlee and in the foot. She shows no other focal sensory or motor deficits. DemyelinationADEM versus new onset MS. Her lack of optic neuritis, and the clinical context of being shortly after a GI infection, hopefully both will have this play out to be ADEM. Either way, the initial treatment is high doses of steroids. LP findings are still pending, likely we will have her home after her third dose of 1 g of Solu-Medrol tomorrow, and on a steroid taper from there. We are getting her set up with PCP and neurology in the [place] area. Otherwise as above. Time in the room approximately 4 PM, time out approximately 4:40 PM, greater than 30 minutes [id number]. Subjective On 03-21-20 pt woke up with the sensation that "her feet were asleep" which did not recover with ambulation. The next day her feel felt week and symptoms progressed to her knees. She had the sensation of swollen feet, difficulty ambulating, and lack of sensation in her legs up to midthigh. When pt came into [facility] on Wednesday she had weakness and numbness and tingling in BLE. Pt reported no bowel or bladder incontinence. Did not report any changes in vision, hearing, or speech. 2 weeks previous patient reported loose stools following Chiptole but reports this as consistent with a history of loose stools which she associated with an irregular diet. No fevers, chills, or other URI symptoms. Pt was restarted on Effexor 3 weeks prior to admission due to depression symptoms. Had previously been on Effexor in 2016 without any symptoms. Pt previous used MJ regularly but drastically reduced since resuming Effexor. Since Feb pt reports a 9lb unintentional weight loss but attributes this to lack of appetite following MJ smoking cessation. Pt has a history of skipping meals. No acute events overnight. Pt reports more sensation in her legs with left greater than right. Is ambulating independently. Feels "swollen", although pt acknowledges that they do not appear larger. 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 Review of Systems Neurologic: + loss of sensation, + tingling and + paresthesia Physical Exam Physical Exam: Gen Appearance: Pt was woken from sleep, is well appearing, and conversant. HEENT: PEERLA Cardio: RRR with no RMG appreciated on exam. Lungs: symmetric, CTA, no difficulty in inspiration or expiration Abd: non-distended, normoactive bowel sounds, mildly tender on LLQ Neuro: Mental Status - alert and orientated x3 CN 3- 12: Grossly intact (CN 1-2 was not assessed.) Strength: 5/5 All Upper Extremities b/l, 4/5 Hip Flexion b/l, 5/5 Ankle flexion/extension b/l Reflexes: Triceps 2+, Brachioradialis 1+, Patellar 1-, Achilles 2+, No Babinski sign. B/L Cerebellum: [id number] normal Gait: Slow gait, Unsteady ambulation was walking on toes, negative Romberg Results & Data ([facility]) Vital Signs (Past 12 Hours) Vital Signs Temp Pulse Resp BP Pulse Ox 03/25/20 07:52 36.0 C L 70 16 112/75 97 03/25/20 03:01 36.7 C 81 20 100/63 92 03/24/20 23:13 36.7 C 77 18 112/67 98
--- NOTE | 2020-03-25 09:51 | Neurology Progress Note ---
Date of Service March 25, 2020 Assessment & Plan (1) Demyelinating disease of central nervous system: This patient presents with subacute bilateral ascending lower extremity, right greater than left paresthesias and mild sensory loss, beginning this past , getting progressively worse, and stabilizing/improving over the past 24 hours. She has multiple foci of demyelination on brain MRI, some of these exhibiting gadolinium enhancement. No definitive spinal cord lesions on MRI of the cervical and thoracic spine. She is not myelopathic on examination but does have mild sensory loss to proprioception and light touch for the lower limbs, right greater than left. She does not have a definitive sensory level. Her deep tendon reflexes are normoactive to reduced. She does not have foot drop. Differential diagnosis includes ADEM versus multiple sclerosis. No definitive evidence of transverse myelitis on imaging. No history of optic neuritis. Her lower extremity symptoms seem to resemble a Guillain-Barrios type of picture or nonspecific neuritis although the sensory disturbance is moderately asymmetrical. No albumino-cytologic dissociation on CSF analysis. MS panel pending. Case discussed with hospitalist physician this morning. Would recommend Solu- Medrol 1000 mg/day, total of 3 days. She has already had 1 g of Solu-Medrol administered thus far. Would follow with a Medrol Dosepak taper at time of discharge. The MS panel will take at least 1 week for results. However, oligoclonal banding can be seen in ADEM and multiple sclerosis. She will need to have additional outpatient follow-up with a neurologist for ongoing monitoring of her condition. She is from [place] and will need to establish with a neurologist when she returns home. If she remains in the [facility] she could follow-up with Dr. Hopkins in our neurology clinic. Admission and Anticipated Discharge Date Admission Date: March 24, 2020 Subjective Follow-up for paresthesias and abnormal MRI The patient continues to complain of bilateral lower extremity paresthesias, right greater than left which began this past . The paresthesias have considerably improved, however, especially the feet. She complains of some associated sensory dysfunction/loss to the lower limbs as well, right greater than left, mid thigh down to the ankles. No associated weakness. No associated incontinence. No spinal pain, paresthesias, or squeezing sensations across the abdomen or chest. Patient denies similar sensory symptoms in the upper limbs or face. No visual complaint. No headache. No cognitive symptoms. As above, symptoms began this past , were progressive, and have subsequently plateaued and modestly improved over the past 24 hours. Patient denies any antecedent illness, infection, vaccination, or injury. No known history of optic neuritis, transverse myelitis, or other discrete neurologic syndrome. Review of Systems Eyes: no blind spots, no diplopia and no eye pain Neurologic: + loss of sensation and + paresthesia; no localized weakness, no tremor(s), no headache(s), no confusion and no memory loss Results & Data ([facility]) Vital Signs (Past 12 Hours) Vital Signs Temp Pulse Resp BP Pulse Ox 03/25/20 08:11 37.0 C 67 18 132/76 97 03/25/20 07:52 36.0 C L 70 16 112/75 97 03/25/20 03:01 36.7 C 81 20 100/63 92 03/24/20 23:13 36.7 C 77 18 112/67 98 Laboratory Results WBC 7.48, hemoglobin 13.4, hematocrit 39.2, platelet count 177, ESR 13, sodium 138, potassium 4.3, BUN 9, creatinine 0.70, glucose 144, calcium 9.1, CRP less than 0.29, vitamin D level 12.9, vitamin B12 level 757, TSH 2.480, CSF clear, colorless, no xanthochromia, CSF WBC 3, RBC 2, protein 37.9. CSF Gram stain, few WBCs, no organisms. Diagnostic Findings Brain MRI reveals multiple foci of increased T2 signal within the deep white matter with involvement of the frontal, parietal, and temporal regions. The left parietal lesion and to right temporal lesions demonstrate postcontrast enhancement. Cervical spine MRI unremarkable. Thoracic spine MRI unremarkable. Lumbar spine MRI unremarkable. These imaging findings were observed by the interpreting radiologist. I reviewed the images as well and agree. Exam (Neuro) Constitutional: well developed and well nourished; no acute distress Neurologic: Oriented to:: Person, Place and Time Attention: Span Intact and Concentration Intact Speech Fluency: negative Dysarthria Speech Aphasia: negative Aphasia Fund of Knowledge: Current Events, Past History and Vocabulary Cranial Nerves: Normal II, III, IV, , V, VII, VIII, IX, X, XI and XII Motor Strength: Normal Lower Extremities and Normal Upper Extremities Motor Tone: Normal Lower Extremities and Normal Upper Extremities Muscle Bulk/Involuntary Movements: No Involuntary Movements Sensation: negative Light Touch Intact, Pain/Temperature Intact and Proprioception Intact Coordination: Normal Deep Tendon Reflexes: Rt Triceps: 2+, Lt Triceps: 2+, Rt Biceps: 2+, Lt Biceps: 2+, Rt Brachioradialis: 2+, Lt Brachioradialis: 2+, Rt Patellar: 1+, Lt Patellar: 1+, Rt Ankle: 2+ and Lt Ankle: 2+ Special Tests: negative Babinski Present Gait: Normal Station and Gait PG Care Time/CCT Total # of Minutes Spent Total Time Spent with Patient: Total time spent is greater than 50% in coordination of care (as documented) at patient's floor/unit and/or counseling patient: Coding Level of Care Code 14957 Subseq Hosp Care Lvl 3 Diagnoses Demyelinating disease of central nervous system G37.9
[2020-03-25 10:11] LABS: Estimated Average Glucose 105 mg/dl; Hemoglobin A1C 5.3 % (4.5-5.6)
[2020-03-25] MEDS: methylPREDNISolone 1,000 MG in DEXTROSE 5% 250 ML IV SCH (12:24)
[2020-03-25] MEDS ORDERED: CHOLECALCIFEROL 1,000 UNITS 25 MCG TAB PO SCH (13:45)
[2020-03-25] MEDS ORDERED: ERGOCALCIFEROL 50,000 UNITS 1250 MCG CAP PO STA (13:55)
--- NOTE | 2020-03-25 17:27 | Billing Data ---
Date of Service March 25, 2020 Coding Level of Care Code 04584 Prolonged Care (int'l)
--- NOTE | 2020-03-25 17:27 | Billing Data ---
Date of Service March 25, 2020 Coding Level of Care Code 98492 Subseq Hosp Care Lvl 3
[2020-03-25] MEDS ORDERED: ONDANSETRON 4 MG OD TAB PO PRN (18:07)
[2020-03-25] MEDS ORDERED: MELATONIN 3 MG TAB PO PRN (18:07)
--- NOTE | 2020-03-26 08:51 | Neurology Progress Note ---
Date of Service March 26, 2020 Assessment & Plan (1) Demyelinating disease of central nervous system: MS versus ADEM. First ever clinical episode responding well to Solu- Medrol. MS panel pending. Patient to receive 1 additional gram of Solu-Medrol today. Anticipate discharge to home with Medrol Dosepak taper. Will need additional outpatient neurology follow-up either with Dr. Kellie metcalf or with a new neurologist back home in [place]. She will need ongoing monitoring. I discussed the possibility of starting treatment for MS depending on her MS panel results and clinical status going forward. These decisions will likely be made over the next few weeks in the outpatient setting, again depending on test results and her clinical status. Admission and Anticipated Discharge Date Admission Date: March 24, 2020 Subjective Follow-up for demyelinating disease of the central nervous system The patient continues to report improvement in her bilateral lower extremity numbness, right greater than left. She still is aware of some mild residual sensory loss affecting the right lower limb and perceives some difficulty with proprioception of the toe joints for the right foot. No weakness or foot drop. She has been able to ambulate without difficulty. Patient denies any difficulty with bladder control. No significant spinal pain, paresthesias, or sensory level. No sensory loss or weakness of the hands. No headache, vision change, or confusion. Patient has received her second 1 g dose of Solu-Medrol. Overall, feeling improved. Review of Systems Neurologic: + unsteadiness and + loss of sensation; no gait abnormality, no tremor(s), no restless legs, no headache(s) and no confusion Results & Data ([facility]) Vital Signs (Past 12 Hours) Vital Signs Temp Pulse Resp BP Pulse Ox 03/26/20 07:46 37.0 C 72 16 122/78 99 03/26/20 04:02 36.6 C 64 20 112/69 99 03/25/20 23:26 36.9 C 67 20 123/75 95 Exam (Neuro) Neurologic: Oriented to:: Person, Place and Time Attention: Span Intact and Concentration Intact Speech Fluency: negative Dysarthria Speech Aphasia: negative Aphasia Fund of Knowledge: Current Events, Past History and Vocabulary Cranial Nerves: Normal II, III, IV, and VII Motor Strength: Normal Lower Extremities and Normal Upper Extremities Motor Tone: Normal Lower Extremities and Normal Upper Extremities Muscle Bulk/Involuntary Movements: No Involuntary Movements Sensation: negative Light Touch Intact and Vibration Intact Coordination: Normal; negative Dysdiadochokinesia, Finger-Nose Abnormal and Heel-Gomez Abnormal Deep Tendon Reflexes: Rt Triceps: 2+, Lt Triceps: 2+, Rt Biceps: 2+, Lt Biceps: 2+, Rt Brachioradialis: 2+, Lt Brachioradialis: 2+, Rt Patellar: 2+, Lt Patellar: 2+, Rt Ankle: 2+ and Lt Ankle: 2+ Special Tests: negative Babinski Present Gait: Normal Station and Gait Details: Mild sensory loss to light touch, vibration, and proprioception for the distal right lower limb noted. Coding Level of Care Code 48663 Subseq Hosp Care Lvl 1 Diagnoses Demyelinating disease of central nervous system G37.9
[2020-03-26] MEDS ORDERED: CHOLECALCIFEROL 1,000 UNITS 25 MCG TAB PO SCH (09:00)
[2020-03-26] MEDS ORDERED: Nursing to Pharmacy Communication SCH (09:15)
--- NOTE | 2020-03-26 09:26 | Med Student Discharge Summary ---
Date of Service March 26, 2020 Admission HPI Per Admitting Provider Latia Watt is a 24-year-old female with prior history of a concussion in 2011, otherwise healthy. 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 She noticed on night that her feet felt like they were falling a sleep. On Wednesday morning she woke up and felt that her feet were cold and when she got up she felt that she was weak. When she was driving here from [facility] and she could only drive for 1 hour and then had to switch drivers. She felt the numbness and tingling had progressed from her feet to her knee and now to her mid thigh. She feels that her equilibrium is off, not that the room is spinning but is have trouble with walking. She feels that her legs feel swollen but aren't. No bowel or bladder incontinence. She noted that after eating Chipotle 2 weeks ago she had developed diarrhea with liquid mucus stools. She did have sweats over a week ago on the . She admits to weight loss in the past of 9 lbs. after stopping smoking marijuana at the time. Her psychiatrist wanted her to start Mirtazapine but she was concerned with the potential weight gain. She is currently smoking marijuana 2-3 times a day. She does not use tobacco or alcohol. No IVDU. Discharge Data Consultations 03/24/20 04:09 ED Decision to Admit Stat 03/24/20 05:51 Consult Neurology Routine Hospital Course (1) Bilateral leg numbness: See Demyelinating disease of central nervous system. (2) Demyelinating disease of central nervous system: - Pt presented with progressive BLE paresthesia. - Multiple foci of increased T2 signal within the deep white matter with involvement of the frontal, parietal and temporal regions was evident on MRI. Appears to be active demyelination. - Diagnosis was indeterminate between Multiple Sclerosis and Acute Disseminated Encephalomyelitis. - Treated with 1000mg methylprednisone daily for three doses. - She will be sent home with a Solu-Medrol taper. - Intends to follow up with PCP either in [place] or [facility] area. - We recommend f/u with neurologist and PCP. (3) Vitamin D deficiency: - Level was checked and found to be low at 12.9. - Patient was treated with 2,000 units of cholecalciferol. - We recommend Ergocalciferol 50, 000 units weekly and 2,000 units daily. - We recommend level recheck 2-3 with PCP. Discharge Plan Discharge Items Patient Disposition: Home - Self-Care Reason For Visit: ASCENDING PARALYSIS Discharge Diagnosis: Bilateral Lower Extremity Numbness Activity: Resume your previous activity Non-emergency contact: Primary Care Provider and Neurologist Follow-up/Referrals: PCP,NO [Primary Care Provider] - Diet: Regular Addtl Attending Provider Instructions: You were hospitalized at [facility] for evaluation of bilateral leg numbness/tingling sensation and weakness. On arrival, blood work was drawn. It showed no evidence of infection, electrolyte abnormalities, or diabetes. Your kidney, liver and thyroid function were all normal. Your vitamin B12 and folate levels were normal. Your urine showed no evidence of infection. We ordered an MRI of your entire spine (lumbar, thoracic, and cervical levels) - all of which were normal. We also ordered an MRI of your brain, which showed evidence of several areas of active demyelination - we discussed how myelin is an insulating sheath over nerves, and it functions to increase their conduction, or the speed at which they send signals. If a nerve is equivalent to a wire - mylein is equivalent to the rubber sheath wrapped around the wire. Demyelination is a process which the myelin gets stripped off the nerves. Neurology was consulted during your hospital stay and weighed in on possible causes of your symptoms and the findings on your brain MRI. Collectively, we feel as though your symptoms could be consistent either with Multiple Sclerosis (MS) or a similar (yet more limited condition) known as Acute Demyelinating Encephalomyelitis (ADEM). Both of these processes are caused by over-activity of your immune system on your own nerves. They are known as "autoimmune" diseases. You had a lumbar puncture, or "spinal tap," in the emergency department - this procedure allowed us to collect some cerebral spinal fluid, or CSF. We are currently running tests on your sample of CSF to see if you have MS. Because the results for the MS panel may take up to a week to return - the results were not available to you at the time of your discharge. You will be contacted with the results when they return. Fortunately, there was no evidence of infection in your CSF, which would have been indicative of a meningitis. We discussed the similarities and differences among MS and ADEM - and how establishing a definitive diagnosis by the time of your hospital discharge is impossible. In the event your MS panel returns positive, or if you experience similar symptoms in the future and this diagnosis is eventually settled on - we talked about the advancements in treatment options for this condition in the past decade. You were treated with high doses of IV steroids, which resulted in an improvement of your symptoms. We provided you with a Medrol Dose Pack (or continued steroid taper) to complete after discharge. Please take as directed on the box. Additionally, your vitamin D level was found to be low. We recommend you supplement with 50,000 IU once weekly for the next 6 weeks + 2,000 IU daily over the next 6 weeks. A script was sent to your pharmacy for the 50,000 IU dose - you can obtain the 2,000 IU dose over the counter. Your vitamin D level should be re-checked by your primary care physician 2-3 months. You will need to follow up both with a Neurologist as an outpatient and also a primary care physician. You will likely need a follow up Brain MRI to reassess the lesions noted during this hospital stay. Pending Studies at Discharge: Yes Stand-Alone Forms: [facility] [employer], Smoking Cessation Medications and DC Order Prescriptions: New cholecalciferol (vitamin D3) 25 mcg (1,000 unit) Capsule 2,000 unit PO QAM 30 Days Qty: 30 RF: 0 ergocalciferol (vitamin D2) [Vitamin D2] 1,250 mcg (50,000 unit) capsule 50,000 unit PO .Weekly Qty: 6 RF: 0 Continued venlafaxine 37.5 mg capsule,extended release 24hr 37.5 mg PO DAILY RF: 0 alprazolam 0.5 mg tablet 0.5 mg PO UD PRN (Reason: Anxiety) RF: 0 mirtazapine 7.5 mg tablet 7.5 mg PO DAILY RF: 0 Discharge Orders: Discharge Order (Routine); Ordered 03/26/20 Ordered By: Gill Antoine Admission Data Admit Date/Time: 03/24/20 04:43 Attending Provider: Ander Eubanks Admit Provider: Sandy Verde Primary Care Provider: PCP,NO Other Providers: Sandy Verde ; Shawna Hopkins ; Jennifer Haywood Supervising Attestation I personally examined the patient and verified all sarabia points of history and exam, discussed case, and agree with decision making with Coty Rachel MS2. leg numbness doing better - still present and coming back a little asymmetrically - but better than it was Vitals noted, in general she is awake and alert pleasant no distress. HEENT normocephalic atraumatic mucous membranes moist. Breathing unlabored no accessory muscle use good effort. Skin shows no rashes no pallor or icterus. improved sensation distal thigh, brownlee, foot. a little more sensation R than L. DemyelinationADEM versus new onset MS. Her lack of optic neuritis, and the clinical context of being shortly after a GI infection, hopefully both will have this play out to be ADEM. Either way, the initial treatment is high doses of steroids. LP findings are still pending, stable for home on medrol dosepak. close outpt pcp and neuro follow up - has contacts/connections facilitated for f/u either here (dr antoine/tommy) or in [place] area (dr fox and then he would facilitate neuro f/u) Otherwise as above.
[2020-03-26] MEDS: VENLAFAXINE HCL XR 37.5 MG CAPXR PO SCH (09:58)
[2020-03-26] MEDS: ALPRAZolam 0.5 MG TABLET PO PRN (10:01)
[2020-03-26] MEDS: methylPREDNISolone 1,000 MG in DEXTROSE 5% 250 ML IV SCH (11:30)
--- NOTE | 2020-03-26 12:49 | Billing Data ---
Date of Service March 26, 2020 Coding Level of Care Code 83633 OBS Care - Discharge
[2020-03-26 23:46] LABS: Marijuana Quant, GCMS Urine 661 ng/mL (<5)
[2020-03-28 07:29] LABS: Creatinine Ur 182 mg/dL (20-275); Protein, Urine Random 9 mg/dL (5-24); Ur Protein/Creat Ratio mg/g 49 mg/g creat (21-161); Urine Abnormal Protein Band 1 DNR mg/dL (NONE DETECTED); Urine Abnormal Protein Band 2 DNR mg/dL (NONE DETECTED); Urine Abnormal Protein Band 3 DNR mg/dL (NONE DETECTED); Urine Protein/Creatinine Ratio 0.049 (0.021-0.161)
[2020-03-29 07:23] LABS: Albumin 3.8 g/dL (3.8-4.8); Alpha 1 Globulin 0.3 g/dL (0.2-0.3); Alpha 2 Globulin 0.7 g/dL (0.5-0.9); Angiotensin Converting Enzyme 22 U/L (9-67); Anti Nuclear Antibody Screen POSITIVE (NEGATIVE); Anti-SS-A <1.0 NEG AI (<1.0 NEG); Anti-SS-B <1.0 NEG AI (<1.0 NEG); Beta-1-Globulin 0.4 g/dL (0.4-0.6); Beta-2-Globulin 0.3 g/dL (0.2-0.5); Gamma Globulin 1.1 g/dL (0.8-1.7); Monoclonal Protein Band 1 DNR g/dL (NONE DETECTED); Monoclonal Protein Band 2 DNR g/dL (NONE DETECTED); Monoclonal Protein Band 3 DNR g/dL (NONE DETECTED); Rheumatoid Factor <14 IU/mL (<14); Total Protein 6.5 g/dL (6.1-8.1); Vitamin B6 5.1 ng/mL (2.1-21.7)
[2020-03-29 12:29] LABS: ANA Pattern Cytoplasmic
[2020-04-12 16:21] LABS: Albumin 4.4 g/dL (3.5-5.2); IgG CSF 4.1 mg/dL (0.8-7.7); IgG Index, CSF 0.79 (<0.66); IgG Serum 1200 mg/dL (600-1640); Myelin Basic Protein 3.9 mcg/L (2.0-4.0); Synthesis Rate, IgG CSF 4.3 mg/24 h (-9.9-3.3)
== END 2020-03-26 14:38 | disposition home or self-care (01) ==
LOC: ED 20:51 → 2N 20:51 → SUATTDRO 03-24 04:43 → 2N 03-24 05:22